=== PATIENT | female | born 1985 ===

== ENCOUNTER 2022-07-14 20:25 | Inpatient (IN) | payer OTHER ==
[~2022-07-14] VITALS: Ht 170.2 cm; Wt 123.8 kg
[2022-07-14] MEDS ORDERED: ONDANSETRON 4 MG/2 ML VIAL IV ONE (20:45)
[2022-07-14] MEDS ORDERED: IV NORMAL SALINE 1000 ML BAG IV ONE (20:45)
[2022-07-14] MEDS ORDERED: HYDROMORPHONE 1 MG/1 ML DISP.SYRIN IV ONE ×2 (20:45→23:00)
[2022-07-14] MEDS ORDERED: ONDANSETRON 4 MG/2 ML VIAL ONE (20:46)
[2022-07-14] MEDS ORDERED: HYDROMORPHONE 1 MG/1 ML DISP.SYRIN ONE ×2 (20:47→22:58)
[2022-07-14 20:51] LABS: HEMATOCRIT 43.7 % (31.2-41.9); MEAN CORPUSCULAR VOLUME 95.4 fL (75.5-95.3); PLATELET COUNT (AUTO) 185 K/uL (179-408)
[2022-07-14 21:01] LABS: CARBON DIOXIDE 29 mmol/L (21-32); CHLORIDE 106 mmol/L (98-107); CREATININE 0.9 mg/dL (0.6-1.3); GLUCOSE 103 mg/dL (74-106); POTASSIUM 3.5 mmol/L (3.5-5.1); UREA NITROGEN, BLOOD 10 mg/dL (7-18)
[2022-07-14] MEDS ORDERED: PREN1TAB81 PO (21:03)
[2022-07-14 21:07] LABS: ALANINE AMINOTRANSFERASE 29 U/L (14-59); ALKALINE PHOSPHATASE 152 U/L (50-136); ASPARTATE AMINOTRANSFERASE 17 U/L (15-37); BILIRUBIN,DIRECT 0.1 mg/dL (0.0-0.2); BILIRUBIN,TOTAL 0.2 mg/dL (0.2-1.0); LIPASE 81 U/L (73-393); TOTAL PROTEIN, SERUM 7.5 g/dL (6.4-8.2)
--- NOTE | 2022-07-14 21:14 | NUR ---
Patient A/O x4. Pain 05/09. CT with contrast Consent signed.
[2022-07-14] MEDS ORDERED: SWABABLE VALVE TRANSFER SET EA MC ONE (21:56)
[2022-07-14] MEDS ORDERED: IV NORMAL SALINE 250 ML IV ONE (21:56)
[2022-07-14] MEDS ORDERED: IOHEXOL 300MG/ML 100 ML INFUS..BTL ONE (21:56)
--- NOTE | 2022-07-14 22:22 | NUR ---
Patient taken down for CT.
--- NOTE | 2022-07-14 23:14 | NUR ---
Urine sample sent to lab.
[2022-07-14 23:24] LABS: *BILIRUBIN,URIN NEGATIVE (NEGATIVE); *BLOOD, URINE 3+ (NEGATIVE); *CLARITY,URINE CLEAR (CLEAR); *COLOR,URINE YELLOW (YELLOW); *KETONES,URINE NEGATIVE (NEGATIVE); *UROBILINOGEN,URINE 0.2 E.U./dl (NORMAL); LEUKOCYTE ESTERASE ,URINE 1+ (NEGATIVE); NITRITE, URINE NEGATIVE (NEGATIVE); UGLUCOSE NEGATIVE (NEGATIVE)
[2022-07-14] MEDS ORDERED: CLINDAMYCIN PHOSPHATE IV 900 MG in IV DEXTROSE 5% 100 ML IV ONE (23:45)
[2022-07-14] MEDS ORDERED: GENTAMICIN SULFATE INJ 100 MG in IV DEXTROSE 5% 100 ML IV ONE (23:45)
[2022-07-14] MEDS ORDERED: GENTAMICIN SULFATE 80 MG/2 ML VIAL ONE (23:54)
[2022-07-14] MEDS ORDERED: CLINDAMYCIN 900MG/D5W 100ML IVPB **ER PYXIS ONLY IJ ONE (23:54)
[2022-07-14] MEDS ORDERED: GENTAMICIN SULFATE 20 MG/2 ML VIAL IV ONE (23:54)
[2022-07-14 23:56] LABS: BACTERIA,URINE FEW /HPF (NONE SEEN); RBC,URINE 50-80 /HPF (0-3); SQUAMOUS EPITHELIAL CELL,UR MODERATE /HPF (NONE SEEN)
[2022-07-15] MEDS ORDERED: KETOROLAC TROMETHAMINE 30 MG INJ ONE (00:05)
[2022-07-15] MEDS ORDERED: KETOROLAC TROMETHAMINE 30 MG INJ IVP ONE (00:15)
[2022-07-15] MEDS ORDERED: KETAMINE HCL 500 MG/10 ML INJ IV ONE (00:45)
[2022-07-15] MEDS ORDERED: KETAMINE HCL 500 MG/10 ML INJ ONE (00:47)
--- NOTE | 2022-07-15 01:00 | NUR ---
Gave sister's (Umesh Juarez) phone #: [phone]
[2022-07-15] MEDS ORDERED: ONDANSETRON 4 MG/2 ML VIAL ONE (01:11)
[2022-07-15] MEDS ORDERED: ONDANSETRON 4 MG/2 ML VIAL IV ONE (01:15)
--- NOTE | 2022-07-15 01:30 | NUR ---
Called [facility] for panel call, Dr. Almanzar senior controls technician.
[2022-07-15] MEDS ORDERED: PANTOPRAZOLE SODIUM IV 40 MG in IV DEXTROSE 5% 100 ML IV ONE (01:45)
[2022-07-15] MEDS ORDERED: PANTOPRAZOLE SODIUM 40 MG VIAL ONE (01:48)
[2022-07-15] MEDS ORDERED: TEMAZEPAM 15 MG CAPSULE PO PRN (02:00)
[2022-07-15] MEDS ORDERED: HYDROCODONE/APAP 5-325MG TABLET PO PRN (02:00)
[2022-07-15] MEDS ORDERED: MORPHINE SULFATE 2 MG/1 ML DISP.SYRIN IV PRN ×2 (02:00→05:30)
[2022-07-15] MEDS ORDERED: IV NS 1000 ML 1,000 ML IV PRN (02:00)
[2022-07-15] MEDS ORDERED: REMEDY ESSENTIAL ZINC PASTE 113 GM TP PRN (02:00)
[2022-07-15] MEDS ORDERED: MAGNESIUM HYDROXIDE 30 ML LIQUID UDC PO PRN (02:00)
[2022-07-15] MEDS ORDERED: ACETAMINOPHEN 325 MG TABLET PO PRN (02:00)
--- NOTE | 2022-07-15 02:55 | NUR ---
Report given to IRENA Cooper.
--- NOTE | 2022-07-15 04:00 | NUR ---
Pt. admitted to [facility], under care of AFSHIN Almanzar. Belongs List completed IRENA Cooper aware of patient's arrival to unit.
[2022-07-15] MEDS: ONDANSETRON 4 MG/2 ML VIAL IV PRN (04:22)
--- NOTE | 2022-07-15 05:30 | NUR ---
RECEIVED REPORT FROM ER NURSE MICHAEL. PT IS ALERT AND ORIENTED X4 NO SIGNS OF RESPIRATORY DISTRY NOTED. PT WAS GIVEN DILAUDID 1MG X2 IN ER ALONG WITH OTHER MEDS. PT IS 4 WEEKS . PT OIS ALERT TO KEFLIX AND MACROBID. PT HAS IV ON RIGHT HAND AND LT AC BOTH ARE 20 GAUGE.PT IS COVID NEG PUT REFUISED THE VACCINE,.PT CAME ER WITH C/O SEVERE ABD PAIN NO SIGNS OF DISTRESSED NOTED WILL ENDORSE TO AM NURSE. PT GIVEN MORPHINE 4MG AND ZOFRAN 4MG AT 0452PM.
[2022-07-15] MEDS ORDERED: CLINDAMYCIN PHOSPHATE IV 600 MG in IV DEXTROSE 5% 100 ML IV SCH (06:00)
[2022-07-15] MEDS: PANTOPRAZOLE SODIUM 40 MG TABLET.DR PO SCH (06:38)
[2022-07-15] MEDS: CLINDAMYCIN PHOSPHATE IV SCH ×3 (09:18→23:02)
[2022-07-15] MEDS: NORMAL SALINE IV SCH ×3 (09:18→23:02)
[2022-07-15] MEDS ORDERED: IV NORMAL SALINE 500 ML IV ONE (10:45)
[2022-07-15] MEDS ORDERED: SWABABLE VALVE TRANSFER SET EA MC ONE (11:06)
[2022-07-15] MEDS ORDERED: IOHEXOL 350 100 ML INFUS..BTL ONE (11:06)
[2022-07-15] MEDS ORDERED: IV NORMAL SALINE 250 ML IV ONE (11:06)
[2022-07-15 11:50] VITALS: BP 102/50
--- NOTE | 2022-07-15 15:09 | NUR ---
Family Contact 1st Call - Father - Mr.Calvin Juarez - [phone] 2nd Call - Sister - Ms. Umesh Juarez - [phone] 3rd Call - Spouse - Mr. Gilman - [phone] (He is the primary lawn care technician for their 5 children including their 3 week old son)
[2022-07-15 16:22] VITALS: BP 87/52
[2022-07-15] MEDS: HYDROMORPHONE 1 MG/1 ML DISP.SYRIN IV PRN (17:42)
--- NOTE | 2022-07-15 19:52 | NUR ---
family given update
--- NOTE | 2022-07-15 20:26 | NUR ---
spoke with Masood Miranda SUPERVISOR [employer]PLAY [employer] earlier today Pt OBGY Dr. Fernández [phone] PCP throughout her Pt delivered by a survey research associate @ [facility] 3 weeks ago morphine was not working for pts pain, switched to dilaudid CTA ordered (see order and report) pt on Abx and fluids. pt stable, skin intact, pt ambulates, guarded around abdomen due to pain pt had mild vomitting after ingesting water due to severe painx1 told pt if pain persist whenever she ingests fluids that she needs to stop and to notify RN.
[2022-07-15 20:48] VITALS: BP 95/46
[2022-07-15] MEDS: GENTAMICIN SULFATE INJ 120 MG in IV DEXTROSE 5% 100 ML IV SCH (22:00)
[2022-07-15] MEDS ORDERED: GENTAMICIN SULFATE 80 MG/2 ML VIAL ONE ×2 (23:22→23:23)
[2022-07-16] VITALS (8 sets, daily range): BP systolic 96–133; BP diastolic 50–71
--- NOTE | 2022-07-16 01:45 | NUR ---
2000 :received pt in bed v/s and assessment done same stable.pt voiced her concern that she has not seen a doctor all day and she would like to speak to the doctor as she is not happy here. 2200 : Patient states she [facility] to [facility] to [facility] where they can find out why she is having these abdominal pains . Medication given and pt proceeded to express her milk. 2330: Charge nurse spoke to patient and reassured her that she will call md . 0100: pt call to inform us that she is bleeding vaginally .pt examined and assessment and v/s done ,noted bright red blood coming from vagina,charge nurse to see pt and she notified md and network control operators supervisor of pt condition.Marcelle care done and marcelle pad applied ,pt was reassure that the ER md will see her soon. pt on phone with family at this time. 0145 :Pt was seen by ER MD and pt voiced her concern that she wants to be transferred ..
[2022-07-16] MEDS: HYDROMORPHONE 1 MG/1 ML DISP.SYRIN IV PRN ×2 (02:16→08:50)
--- NOTE | 2022-07-16 03:00 | NUR ---
report given to [facility] RN at this time. Gladis . pt v/s stable ,pain medication given .Pt made comfortable and was transferred to [facility] in no distress.
[2022-07-16] MEDS: ONDANSETRON 4 MG/2 ML VIAL IV PRN (03:40)
[2022-07-16] MEDS: GENTAMICIN SULFATE INJ 120 MG in IV DEXTROSE 5% 100 ML IV SCH (05:39)
[2022-07-16] MEDS: PANTOPRAZOLE SODIUM 40 MG TABLET.DR PO SCH (06:57)
--- NOTE | 2022-07-16 07:30 | NUR ---
Upon receiving report this morning pt. with c/of and as stated "I want to talk to the centrifugal supervisor, so I can get transferred to another facility, Pt. educated on transfer criteria and that transfer is managed by case manger with Dr's recommendations and approval. pt. refusing to listen and demanded to speak with centrifugal supervisor" Pt. also refused labs this morning.
--- NOTE | 2022-07-16 07:35 | NUR ---
Attending called and notified of pt's request.
--- NOTE | 2022-07-16 08:30 | NUR ---
Prior Authorization Technician at bedside talking to pt.
[2022-07-16] MEDS ORDERED: MULTIVITAMINS,THERAPEUTIC TABLET PO SCH (09:00)
[2022-07-16] MEDS: CLINDAMYCIN PHOSPHATE IV SCH (09:45)
[2022-07-16] MEDS: NORMAL SALINE IV SCH (09:45)
--- NOTE | 2022-07-16 10:12 | NUR ---
Attending NAdeliaP. in the unit to follow up on pt. At this time at bedside talking to pt. and pt's dad.
[2022-07-16] MEDS ORDERED: GENTAMICIN SULFATE INJ 120 MG in IV DEXTROSE 5% 100 ML IV SCH (11:00)
--- NOTE | 2022-07-16 11:01 | NUR ---
In preparation for dcd IV line removed as well as ekg monitoring "patient stated crying stating you don't have to snatch or remove anything from and I need to speak with the Dr. He instructed me not to sign any documents for you" Patient and her dad requested Attending to come to speak with them. At this time patient crying because She's been prepared to go home. Attending called and at bedside at this time. [id number]
--- NOTE | 2022-07-16 11:16 | NUR ---
IV lines dcd and pt. physically wheeled down by Attending Masood Downey Pt,. in stable condition vitals of 106/63 HR of 57 NSR saturation of 97%. RR 19.
== END 2022-07-16 11:00 | disposition home or self-care (01) | DRG 561 ==
LOC: ER 20:28 → MEDSURG3 07-15 02:10 → CCU 07-16 03:35
PROVIDERS: ADMIT Nurse Practitioner Family; ATTEND Nurse Practitioner Family
DX: O86.20 Urinary tract infection following delivery, unspecified (principal); E44.1 Mild protein-calorie malnutrition; Z68.41 Body mass index [BMI] 40.0-44.9, adult; O86.12 Endometritis following delivery; E86.0 Dehydration; B95.1 Streptococcus, group B, as the cause of diseases classified elsewhere; O99.893 Other specified diseases and conditions complicating puerperium; Z20.822 Contact with and (suspected) exposure to COVID-19
CPT/HCPCS: 36415; 71045; 71275; 76856; 83605; 83690; 85025; A4663; C9113; G0378; J1170; J1580; J1885; J2270; J2405; J3490; J7040; Q9967